=== PATIENT | female | born 1950 | race Caucasian/White ===

== ENCOUNTER 2020-05-28 14:47 | Outpatient (CLI) | payer BC, MEDICARE, SELFPAY ==
--- NOTE | ~2020-05-28 | DEXA_ITS ---
Bone Density Report Name: Livier Arvizu Age: 69 Sex: Female Ethnicity: White Date of : 1950 Indication: osteopenia; height loss; inflammatory bowel disease; cancer; Referring Provider: Radha Spears Study: Bone densitometry was performed. Exam Date: May 28, 2020 Accession number: [id number] Bone Density: Region BMD T-score Z-score Classification AP Spine (L1-L4) 0.938 -1.0 1.2 Normal Femoral Neck (Left) 0.562 -2.6 -0.7 Osteoporosis Total Hip (Left) 0.688 -2.1 -0.5 Osteopenia Total Hip Bilateral Avg 0.668 -2.3 -0.7 Osteopenia Femoral Neck (Right) 0.528 -2.9 -1.0 Osteoporosis Total Hip (Right) 0.647 -2.4 -0.8 Osteopenia World Health Organization criteria for BMD impression classify patients as: Normal (T-score at or above -1.0), Osteopenia (T-score between -1.0 and -2.5), or Osteoporosis (T-score at or below -2.5). 10-year Fracture Risk: FRAX not reported because: Some T-score for Spine Total or Hip Total or Femoral Neck at or below -2.5 Previous Exams: Region Exam Age BMD T-score BMD Change BMD Change Date g/cm2 vs Baseline vs Previous AP Spine(L1-L4) 05/28/2020 69 0.938 -1.0 0.062(7.1%)# 0.022(2.4%) 06/16/2017 66 0.916 -1.2 0.040(4.6%)# 0.006(0.7%) 11/16/2014 64 0.910 -1.2 0.034(3.9%)# 0.034(3.9%)# 10/28/2012 62 0.876 -1.6 Total Hip(Left) 05/28/2020 69 0.688 -2.1 -0.014(-2.0%)# -0.069(-9.1%)* 06/16/2017 66 0.756 -1.5 0.055(7.8%)# 0.066(9.6%)* 11/16/2014 64 0.690 -2.1 -0.011(-1.6%)# -0.011(-1.6%)# 10/28/2012 62 0.701 -2.0 Total Hip(Right) 05/28/2020 69 0.647 -2.4 -0.037(-5.5%)# -0.068(-9.6%)* 06/16/2017 66 0.716 -1.9 0.031(4.5%)# 0.009(1.3%) 11/16/2014 64 0.706 -1.9 0.022(3.2%)# 0.022(3.2%)# 10/28/2012 62 0.685 -2.1 *Denotes significance at 95% confidence level, LSC for AP Spine = 0.022 g/cm2, LSC for Total Hip = 0.027 g/cm2 Clinical Information Provided by Patient: Has used the following medications: Actonel (i.e. risedronate), Vitamin D, Calcium Has the following medical conditions: Cancer, Inflammatory bowel diseases, crohns Patient maximum height was 64 Menopause Age: 48 Does not regularly consume dairy products Drinks caffeinated beverages Onset of menses at age 11 Number of children 0 Impression: The patient has osteoporosis, based on the Right Femoral Neck T-score. The BMD for the Total Hip(Left) decreased, changing by -9.1% sinc
== END 2020-05-28 14:48 | disposition home or self-care (01) ==
LOC: ANHIMG 14:51
PROVIDERS: PCP Family Medicine; Visit Provider Physician Assistant
DX: Z78.0 Asymptomatic menopausal state (principal); M81.0 Age-related osteoporosis without current pathological fracture; M85.852 Other specified disorders of bone density and structure, left thigh; M85.851 Other specified disorders of bone density and structure, right thigh
CPT/HCPCS: 77080

== ENCOUNTER 2021-02-02 15:22 | Emergency (ER) | payer OTHER, SELFPAY ==
--- NOTE | 2021-02-02 15:31 | ED.SKABFB ---
HPI - Skin/Abscess/Foreign Bdy General Chief complaint: Extremity Injury, Upper Stated complaint: fungus on left pinky nail Source: patient Mode of arrival: ambulatory Limitations: no limitations History of Present Illness HPI narrative: Patient is a 70-year-old female who presents complaining of discoloration to left fifth digit fingernail. She denies injury. She denies having professional manicures or wearing artificial nails. She reports change in color nail over the past week. She denies all other complaints at this time. MD complaint: other Related Data Home Medications Medication Instructions Recorded Confirmed calcium carbonate 600 mg calcium 600 mg PO DAILY 10/11/19 10/15/20 (1,500 mg) tablet cholecalciferol (vitamin D3) 25 25 mcg PO DAILY 10/11/19 10/15/20 mcg (1,000 unit) capsule multivitamin 1 tablet PO DAILY 10/11/19 10/15/20 Allergies Allergy/AdvReac Type Severity Reaction Status Date / Time No Known Allergies Allergy Verified 02/02/21 15:38 Review of Systems Review of Systems: CONSTITUTIONAL: Denies fever, chills, or sweats. EYES: Denies visual changes, redness, or discharge. ENT: Denies rhinorrhea, congestion, sore throat, or otalgia. CARDIOVASCULAR: Denies chest pain, palpitations, or edema. RESPIRATORY: Denies cough or dyspnea. GASTROINTESTINAL: Denies abdominal pain, nausea, vomiting, or diarrhea. GENITOURINARY: Denies dysuria or hematuria. SKIN: Reports discoloration of left fifth fingernail MUSCULOSKELETAL: Denies back pain, joint pain, or myalgia. NEUROLOGIC: Denies headache, numbness, dizziness, or weakness. PSYCHIATRIC: Denies anxiety or depression. [facility] Past Medical History Medical History History of breast cancer History of tobacco abuse Hypertension Mixed hyperlipidemia Osteoporosis Surgical History Surgical History Hx of basal cell carcinoma excision nose and lip S/P breast lumpectomy Family History Family History Mother Family history of premature coronary heart disease, Onset Age: 60 Hypertension Family history of elevated blood lipids Patient's mother is Sibling Family history of malignant neoplasm of breast in first degree relative, Onset Age: 40 Patient's sister is Father Family history of throat cancer, Onset Age: 70 Patient's father is Social History Social History Social History: Smoking packs per day: 0.5 Smoking cigarettes per day: 10.0 Years smoked: 40 Smoking pack-years: 20.00 Smoking status: Former smoker Tobacco type: cigarettes Second hand tobacco smoke exposure: No Smoking end date: 03/23/04 Alcohol intake: current Drinks per week: 2 Substance use: never Substance use type: does not use Gender identity (if verbalized by the patient): Female Sexual Orientation (if Verbalized by the Patient): Straight or Heterosexual Comments At the time of signature, I have reviewed and agree with nursing past medical, surgical, social, and family history unless otherwise noted. Please see nursing chart for further information. There is no relevant family history pertinent to the presenting complaint. Exam Narrative: GENERAL: Well-appearing, well-nourished, and in no acute distress. HEAD: Normocephalic, atraumatic. EYES: EOMI. No redness or drainage. Conjunctiva are normal. ENT: Mucous membranes pink and moist. Nares clear. No rhinorrhea. TMs normal bilaterally. Throat normal. Uvula midline. NECK: AROM. Supple. No lymphadenopathy. CHEST: No respiratory distress. Clear to auscultation. HEART: Regular rate and rhythm. No murmur appreciated. Normal peripheral pulses. GI: Soft, nontender without rebound, or guarding. No dis
[2021-02-02 15:37] VITALS: BP 123/60; PULSE 90; RESP 20; TEMP 36.8; O2SAT 99
[2021-02-02 15:41] VITALS: BP 123/60; PULSE 90; RESP 20; TEMP 36.8; O2SAT 99
== END 2021-02-02 15:55 | disposition home or self-care (01) ==
PROVIDERS: Emergency Provider Nurse Practitioner; PCP Family Medicine
DX: B35.1 Tinea unguium (principal); Z87.891 Personal history of nicotine dependence; I10 Essential (primary) hypertension; E78.2 Mixed hyperlipidemia; M81.0 Age-related osteoporosis without current pathological fracture; Z85.3 Personal history of malignant neoplasm of breast
CPT/HCPCS: 99212; G0463

== ENCOUNTER → 2021-09-09 14:48 | Outpatient (CLI) | payer OTHER, SELFPAY ==
--- NOTE | ~2021-09-09 | MR_ITS ---
EXAMINATION: MR brain/brain stem wo con DATE: 09/09/2021 15:35 INDICATION: Unspecified disorder of binocular movement. TECHNIQUE: Magnetic resonance imaging (MRI) of the brain and brainstem was performed without intraven ous contrast. COMPARISON: None. FINDINGS: There are scattered areas of nonspecific increased T2-weighted signal intensity in the cere bral white matter and right basal ganglia. There is no intracranial hemorrhage, acute infarction, or abnormal intracranial mass lesion. The ventricles are normal in size. There are likely changes of ocu lar lens replacement surgeries. The mastoid air cells are normal. The paranasal sinuses are clear. IMPRESSION: 1. Mild nonspecific cerebral white matter disease and disease of the right basal ganglia, which likel y represents chronic small vessel ischemic disease. Reviewed, dictated and finalized at location A. IMPRESSION: 1. Mild nonspecific cerebral white matter disease and disease of the right basa l ganglia, which likely represents chronic small vessel ischemic disease.
== END ==
PROVIDERS: PCP Family Medicine; Visit Provider Family Medicine
DX: H51.9 Unspecified disorder of binocular movement (principal); R93.0 Abnormal findings on diagnostic imaging of skull and head, not elsewhere classified
CPT/HCPCS: 70551

== ENCOUNTER 2021-10-29 00:06 | Day surgery (SDC) | payer OTHER, SELFPAY ==
[2021-10-14 14:13] VITALS: BMI 21.2
[2021-10-29 07:40] VITALS: BP 122/70; PULSE 78; RESP 16; TEMP 36.2; O2SAT 99
[2021-10-29] MEDS: LACTATED RINGERS 1,000 ML 150 ML IV CONT (07:48)
--- NOTE | 2021-10-29 08:18 | WPDANESEPPF ---
Anes - Initial Pre Proc Eval Procedure: Operation Date: 10/29/21 09:00 Proposed Procedures p Screening Colonoscopy - Norman Black MD Date/Time: 10/29/21 08:18 Surgeon: Norman Black MD Pre Op Diagnosis: positive cologuard Patient Data Age: 71 Gender: F Height: 1.6 m Weight: 54.2 kg Last Vital Signs Temp 97.1 F L 10/29/21 07:40 Pulse 78 10/29/21 07:40 Resp 16 10/29/21 07:40 BP 122/70 10/29/21 07:40 Pulse Ox 99 10/29/21 07:40 O2 Del Method Room Air 10/29/21 07:40 Allergies Allergy/AdvReac Type Severity Reaction Status Date / Time No Known Allergies Allergy Verified 10/29/21 07:38 Home Medications Medication Instructions Recorded Confirmed Type calcium carbonate 600 mg calcium 600 mg PO DAILY 10/11/19 10/29/21 History (1,500 mg) tablet (Calcium) cholecalciferol (vitamin D3) 25 25 mcg PO DAILY 10/11/19 10/29/21 History mcg (1,000 unit) capsule multivitamin 1 tablet PO DAILY 10/11/19 10/29/21 History atorvastatin 10 mg tablet (Lipitor) 10 mg PO DAILY #90 tabs 10/05/20 10/29/21 Rx lisinopril 10 mg tablet 10 mg PO DAILY #90 tabs 10/05/20 10/29/21 Rx sodium sul 1.479 gram-potas ch See Rx Instructions PO PER PKG DIR 09/17/21 10/29/21 Rx 0.188 gram-magnes sul 0.225 gram #24 tabs tablet (Sutab) alendronate 70 mg tablet (Fosamax) 70 mg PO WEEKLY #14 tabs 10/12/21 10/29/21 Rx Patient hx anesthesia problems: none Family hx anesthesia problems: none Results Review: All pre-operative results and documents have been reviewed as part of the pre-operative evaluation. [facility] Past Medical History Medical History History of breast cancer History of tobacco abuse Hypertension Mixed hyperlipidemia Osteoporosis Surgical History Surgical History Hx of basal cell carcinoma excision nose and lip S/P breast lumpectomy Family History Family History Mother Family history of premature coronary heart disease, Onset Age: 60 Hypertension Family history of elevated blood lipids Patient's mother is Sibling Family history of malignant neoplasm of breast in first degree relative, Onset Age: 40 Patient's sister is Father Family history of throat cancer, Onset Age: 70 Patient's father is Social History Social History (Updated 08/23/21 @ 13:27 by Vijaya Moe) Social History: Smoking packs per day: 0.5 Smoking cigarettes per day: 10.0 Years smoked: 40 Smoking pack-years: 20.00 Smoking status: Former smoker Tobacco type: cigarettes Second hand tobacco smoke exposure: No Smoking end date: 03/23/04 Alcohol intake: current Drinks per week: 4 Substance use: current Substance use type: marijuana Other substance usage details: THC 2X daily Living arrangements: with family Gender identity (if verbalized by the patient): Female Sexual Orientation (if Verbalized by the Patient): Straight or Heterosexual Spiritual care concerns: No Anes - Eval Final PreProcedure Day of Procedure 10/29/21 08:18 Patient weight: normal Heart: regular rate and rhythm Lungs: clear to auscultation Airway: Mallampati scale class II Neurological: alert and oriented Last oral intake: >/= 8 hours ASA classification: III Emergent: no Anesthetic plan: proceed Anesthesia type and monitoring: general GIVS and standard monitoring Results Review: All pre-operative results and documents have been reviewed as part of the pre-operative evaluation. Informed Consent: The patient's anesthetic plan and its attendant risks and benefits were discussed with the patient/family/POA. Questions were solicited and answers provided to the satisfaction of the patient/family/POA.
--- NOTE | 2021-10-29 08:26 | PM.HPGS ---
History of Present Illness History of Present Illness Consent: Risks, benefits, and alternatives have been discussed and questions answered. Patient agrees to proceed with procedure. Chief complaint: positive cologuard Narrative: Livier Arvizu is a 71 year old female here for + cologuard, last colonoscopy about 20 years ago. She was told that had crohn's about 45 years ago but never had GI surgeries and not using any med for IBD. Review of Systems Constitutional: Constitutional: Denies headache(s) and Denies weakness Eyes: Eyes: Denies blurry vision ENT: Reports Normal hearing present, Denies headache(s) and Denies neck pain Cardiovascular: Cardiovascular: Denies chest pain and Denies dyspnea Respiratory: Respiratory: Denies dyspnea Gastrointestinal: Gastrointestinal: Reports no additional gastrointestinal complaints Genitourinary: Genitourinary: Denies dysuria Musculoskeletal: Musculoskeletal: Denies neck pain Integumentary/Breasts: Skin/Breast: Denies dry skin Neurologic: Reports Normal hearing present, Denies headache(s) and Denies weakness Psychiatric: Psychiatric: Denies anxiety Endocrine: Endocrine: Denies change in body appearance Hematologic/Lymphatic: Hematologic/Lymphatic: Denies easy bleeding Allergic/Immunologic: Allergic/Immunologic: Denies urticaria PMFSH Past Medical History Medical History History of breast cancer History of tobacco abuse Hypertension Mixed hyperlipidemia Osteoporosis Surgical History Surgical History Hx of basal cell carcinoma excision nose and lip S/P breast lumpectomy Family History Family History Mother Family history of premature coronary heart disease, Onset Age: 60 Hypertension Family history of elevated blood lipids Patient's mother is Sibling Family history of malignant neoplasm of breast in first degree relative, Onset Age: 40 Patient's sister is Father Family history of throat cancer, Onset Age: 70 Patient's father is Social History Social History (Updated 08/23/21 @ 13:27 by Vijaya Moe) Social History: Smoking packs per day: 0.5 Smoking cigarettes per day: 10.0 Years smoked: 40 Smoking pack-years: 20.00 Smoking status: Former smoker Tobacco type: cigarettes Second hand tobacco smoke exposure: No Smoking end date: 03/23/04 Alcohol intake: current Drinks per week: 4 Substance use: current Substance use type: marijuana Other substance usage details: THC 2X daily Living arrangements: with family Gender identity (if verbalized by the patient): Female Sexual Orientation (if Verbalized by the Patient): Straight or Heterosexual Spiritual care concerns: No Meds Home Medications and Allergies Home Medications Medication Instructions Recorded Confirmed Type calcium carbonate 600 mg calcium 600 mg PO DAILY 10/11/19 10/29/21 History (1,500 mg) tablet (Calcium) cholecalciferol (vitamin D3) 25 25 mcg PO DAILY 10/11/19 10/29/21 History mcg (1,000 unit) capsule multivitamin 1 tablet PO DAILY 10/11/19 10/29/21 History atorvastatin 10 mg tablet (Lipitor) 10 mg PO DAILY #90 tabs 10/05/20 10/29/21 Rx lisinopril 10 mg tablet 10 mg PO DAILY #90 tabs 10/05/20 10/29/21 Rx sodium sul 1.479 gram-potas ch See Rx Instructions PO PER PKG DIR 09/17/21 10/29/21 Rx 0.188 gram-magnes sul 0.225 gram #24 tabs tablet (Sutab) alendronate 70 mg tablet (Fosamax) 70 mg PO WEEKLY #14 tabs 10/12/21 10/29/21 Rx Allergies Allergy/AdvReac Type Severity Reaction Status Date / Time No Known Allergies Allergy Verified 10/29/21 07:38 Vital Signs Vital Signs - 24 hr 10/29/21 07:40 Temperature 97.1 F L Pulse Rate 78 Respiratory Rate 16 Blood Pressure 122/70 Pulse Oximetry 99
[2021-10-29 09:26] VITALS: BP 113/71; PULSE 85; RESP 24; O2SAT 100
[2021-10-29 09:36] VITALS: BP 123/75; PULSE 76; RESP 19; O2SAT 98
[2021-10-29 09:46] VITALS: BP 114/74; PULSE 74; RESP 20; O2SAT 100
== END 2021-10-29 10:00 | disposition home or self-care (01) ==
PROVIDERS: PCP Family Medicine; Visit Provider Internal Medicine Gastroenterology
PROC: 0DJD8ZZ Inspection of Lower Intestinal Tract, Via Natural or Artificial Opening Endoscopic (ICD-10-PCS; CPT 45378; principal; 2021-10-29 09:00)
DX: R19.5 Other fecal abnormalities (principal); D12.2 Benign neoplasm of ascending colon; D12.3 Benign neoplasm of transverse colon; D12.4 Benign neoplasm of descending colon; D12.5 Benign neoplasm of sigmoid colon; K63.89 Other specified diseases of intestine; K57.30 Diverticulosis of large intestine without perforation or abscess without bleeding; K64.8 Other hemorrhoids; I10 Essential (primary) hypertension; E78.2 Mixed hyperlipidemia; M81.0 Age-related osteoporosis without current pathological fracture; Z87.891 Personal history of nicotine dependence; F12.90 Cannabis use, unspecified, uncomplicated
CPT/HCPCS: 45380; 45381; 45385; 45390; 88305; J2704; J7120

== ENCOUNTER 2022-08-07 17:51 | Emergency (ER) | payer OTHER, SELFPAY ==
[2022-08-07 17:57] VITALS: BP 127/62; PULSE 90; RESP 18; TEMP 36.4; O2SAT 97
--- NOTE | 2022-08-07 18:02 | ED.EAR ---
HPI - Ear Problem General Chief complaint: Ear Stated complaint: Ear Pain/Facial Swelling Time Seen by Provider: 08/07/22 18:02 Source: patient and RN notes reviewed History of Present Illness HPI Narrative: Patient is a 72-year-old female presents to urgent care with complaints of right jaw swelling and right ear pain. Patient states that she is feeling lot of pressure in the ear. States that it came on suddenly while she was eating a cheeseburger and fries tonight. Denies any recent fever or illness. Patient has not taken anything [id number] for her pain. No other acute complaints. No acute distress noted. Patient aware of the plan of care. Some parts of this dictation were generated by voice recognition software and may contain typographical and/or grammatical inaccuracies. Related Data Home Medications Medication Instructions Recorded Confirmed calcium carbonate 600 mg calcium 600 mg PO DAILY 10/11/19 08/07/22 (1,500 mg) tablet (Calcium) cholecalciferol (vitamin D3) 25 25 mcg PO DAILY 10/11/19 08/07/22 mcg (1,000 unit) capsule multivitamin 1 tablet PO DAILY 10/11/19 08/07/22 Allergies Allergy/AdvReac Type Severity Reaction Status Date / Time No Known Allergies Allergy Verified 08/07/22 18:04 Review of Systems Review of Systems: CONSTITUTIONAL: Denies fever, chills, or sweats. EYES: Denies visual changes, redness, or discharge. ENT: Denies rhinorrhea, congestion, sore throat. Reports of right facial swelling and right ear pain CARDIOVASCULAR: Denies chest pain, palpitations, or edema. RESPIRATORY: Denies cough or dyspnea. GASTROINTESTINAL: Denies abdominal pain, nausea, vomiting, or diarrhea. GENITOURINARY: Denies dysuria or hematuria. SKIN: Denies rash or itching. MUSCULOSKELETAL: Denies back pain, joint pain, or myalgia. NEUROLOGIC: Denies headache, numbness, or weakness. All other systems reviewed are negative, except as documented in HPI. [facility] Past Medical History Medical History History of breast cancer History of tobacco abuse Hypertension Mixed hyperlipidemia Osteoporosis Surgical History Surgical History Hx of basal cell carcinoma excision nose and lip S/P breast lumpectomy Family History Family History Mother Family history of premature coronary heart disease, Onset Age: 60 Hypertension Family history of elevated blood lipids Patient's mother is Sibling Family history of malignant neoplasm of breast in first degree relative, Onset Age: 40 Patient's sister is Father Family history of throat cancer, Onset Age: 70 Patient's father is Social History Social History (Updated 08/23/21 @ 13:27 by Vijaya Moe) Social History: Smoking packs per day: 0.5 Smoking cigarettes per day: 10.0 Years smoked: 40 Smoking pack-years: 20.00 Smoking status: Former smoker Tobacco type: cigarettes Second hand tobacco smoke exposure: No Smoking end date: 03/23/04 Alcohol intake: current Drinks per week: 4 Substance use: current Substance use type: marijuana Other substance usage details: THC 2X daily Living arrangements: with family Occupation/Education: retired Gender identity (if verbalized by the patient): Female Sexual Orientation (if Verbalized by the Patient): Straight or Heterosexual Spiritual care concerns: No Comments At the time of my signature, I reviewed and agree with the nursing past medical, surgical, social, and family history. There is no relevant family history pertinent to the patient complaint. Exam Narrative: GENERAL: This is a well-nourished, well-developed patient, in no apparent distress. HEAD: normocephalic, atraumatic. EYES: PERRL. Sclera clear/white. Vision is grossly intact. EA
== END 2022-08-07 18:13 | disposition home or self-care (01) ==
PROVIDERS: Emergency Provider Nurse Practitioner Family; PCP Family Medicine
DX: K11.20 Sialoadenitis, unspecified (principal); F17.210 Nicotine dependence, cigarettes, uncomplicated; F12.90 Cannabis use, unspecified, uncomplicated; I10 Essential (primary) hypertension; E78.2 Mixed hyperlipidemia; M81.0 Age-related osteoporosis without current pathological fracture; Z85.3 Personal history of malignant neoplasm of breast; Z85.828 Personal history of other malignant neoplasm of skin
CPT/HCPCS: 99211; G0463

== ENCOUNTER 2022-12-02 14:38 | Emergency (ER) | payer OTHER, SELFPAY ==
--- NOTE | 2022-12-02 14:47 | ED.DENTAL ---
HPI - Dental/Oral General Chief complaint: Dental/Oral Stated complaint: Mouth Sore Time Seen by Provider: 12/02/22 14:55 Mode of arrival: ambulatory Limitations: no limitations History of Present Illness HPI Narrative: [age] year old female presents concern for sore on her tongue. She reports it has been present for about week. She reports symptoms started after she aggressively cleaned her tongue before she went to the dentist. She denies sore throat, nasal congestion, rhinorrhea trouble swallowing. She denies other sores in her mouth. Related Data Home Medications Medication Instructions Recorded Confirmed calcium carbonate 600 mg calcium 600 mg PO DAILY 10/11/19 10/27/22 (1,500 mg) tablet (Calcium) cholecalciferol (vitamin D3) 25 25 mcg PO DAILY 10/11/19 10/27/22 mcg (1,000 unit) capsule multivitamin 1 tablet PO DAILY 10/11/19 10/27/22 alendronate 70 mg tablet (Fosamax) 70 mg PO WEEKLY 10/27/22 10/27/22 Allergies Allergy/AdvReac Type Severity Reaction Status Date / Time No Known Allergies Allergy Verified 10/27/22 13:26 Review of Systems Review of Systems: CONSTITUTIONAL: Denies malaise, chills, sweats, or fever. EYES: Denies visual changes ENT: Denies rhinorrhea, congestion, sinus pain, otalgia or sore throat. Reports sore on her tongue CARDIOVASCULAR: Denies chest pain, palpitations RESPIRATORY: Denies cough or dyspnea. SKIN: Denies rash or itching. MUSCULOSKELETAL: Denies myalgia. NEUROLOGIC: Denies numbness, weakness, or headache. All systems reviewed & are unremarkable except as noted in HPI and below PMFSH Past Medical History Medical History History of breast cancer History of tobacco abuse Hypertension Mixed hyperlipidemia Osteoporosis Surgical History Surgical History Hx of basal cell carcinoma excision nose and lip S/P breast lumpectomy Family History Family History Mother Family history of premature coronary heart disease, Onset Age: 60 Hypertension Family history of elevated blood lipids Patient's mother is Sibling Family history of malignant neoplasm of breast in first degree relative, Onset Age: 40 Patient's sister is Father Family history of throat cancer, Onset Age: 70 Patient's father is Social History Social History (Updated 08/23/21 @ 13:27 by Vijaya Moe) Social History: Smoking packs per day: 0.5 Smoking cigarettes per day: 10.0 Years smoked: 40 Smoking pack-years: 20.00 Smoking status: Former smoker Tobacco type: cigarettes Second hand tobacco smoke exposure: No Smoking end date: 03/23/04 Alcohol intake: current Drinks per week: 4 Substance use: current Substance use type: marijuana Other substance usage details: THC 2X daily Living arrangements: with family Occupation/Education: retired Gender identity (if verbalized by the patient): Female Sexual Orientation (if Verbalized by the Patient): Straight or Heterosexual Spiritual care concerns: No Comments At time of signature, agree with nursing past medical, surgical, social and family history. There is no relevant family history pertinent to the presenting complaint Exam Narrative: GENERAL: Well-appearing, well-nourished, and in no acute distress. HEAD: Normocephalic, atraumatic. EYES: PERRLA, sclera clear ENT: Nares clear, turbinates pink, no rhinorrhea or epistaxis. Mucous membranes moist. Oropharynx without erythema. Approximately 0.75 cm linear superficial laceration noted to the mid tongue. Tonsils not enlarged and without exudate. No missing teeth, broken teeth, caries NECK: Supple. No lymphadenopathy. CHEST: No respiratory distress. Speaks in full sentences. HEART: Regular rate and rhythm. SKIN: Warm,
[2022-12-02 14:49] VITALS: BP 113/76; PULSE 84; RESP 16; TEMP 36.6; O2SAT 96
== END 2022-12-02 15:09 | disposition home or self-care (01) ==
PROVIDERS: Emergency Provider Nurse Practitioner; PCP Family Medicine
DX: S01.512A Laceration without foreign body of oral cavity, initial encounter (principal); I10 Essential (primary) hypertension; E78.2 Mixed hyperlipidemia; Z85.3 Personal history of malignant neoplasm of breast; Z87.891 Personal history of nicotine dependence; W45.8XXA Other foreign body or object entering through skin, initial encounter
CPT/HCPCS: 99213; G0463

== ENCOUNTER 2023-07-20 12:41 | Emergency (ER) | payer OTHER, SELFPAY ==
[2023-07-20 12:52] VITALS: BP 132/78; PULSE 86; RESP 16; TEMP 36.2; O2SAT 98
--- NOTE | 2023-07-20 13:36 | ED.EAR ---
HPI - Ear Problem General Chief complaint: Ear Stated complaint: Ear Pain Time Seen by Provider: 07/20/23 13:20 Source: patient, RN notes reviewed and old records reviewed Mode of arrival: ambulatory Limitations: no limitations History of Present Illness HPI Narrative: 72 [facility] complaints of having ear pain when lying in bed for the past few days. Patient reports that she has decreased hearing and thinks her ear need flushed out.Patient denies any cough or any sinus congestion or any other symptoms of respiratory infection. She reports no fevers, chills or sweats or malaise. MD Complaint: ear pain, decreased hearing and other (feel clogged) Location: bilateral Duration: intermittent Severity: mild Discharge from ear: Reports no Related Data Home Medications Medication Instructions Recorded Confirmed calcium carbonate (Calcium 600) 600 mg PO DAILY 10/11/19 06/24/23 cholecalciferol (vitamin D3) 25 25 mcg PO DAILY 10/11/19 06/24/23 mcg (1,000 unit) capsule multivitamin 1 tablet PO DAILY 10/11/19 06/24/23 Allergies Allergy/AdvReac Type Severity Reaction Status Date / Time No Known Allergies Allergy Verified 06/24/23 14:27 Review of Systems Review of Systems: CONSTITUTIONAL: Denies malaise, chills, sweats, or fever. EYES: Denies visual changes, redness, or discharge. ENT: Reports rhinorrhea, congestion, sinus pain, positive for otalgia and no sore throat. CARDIOVASCULAR: Denies chest pain, palpitations, or edema. RESPIRATORY: Reports no cough.? Denies dyspnea. GASTROINTESTINAL: Denies abdominal pain, nausea, vomiting, diarrhea SKIN: Denies rash or itching. MUSCULOSKELETAL: Denies myalgia. NEUROLOGIC: Denies headache. All systems reviewed & are unremarkable except as noted in HPI and below PMFSH Past Medical History Medical History History of breast cancer History of tobacco abuse Hypertension Mixed hyperlipidemia Osteoporosis Surgical History Surgical History Hx of basal cell carcinoma excision nose and lip S/P breast lumpectomy Family History Family History Mother Family history of premature coronary heart disease, Onset Age: 60 Hypertension Family history of elevated blood lipids Patient's mother is Sibling Family history of malignant neoplasm of breast in first degree relative, Onset Age: 40 Patient's sister is Father Family history of throat cancer, Onset Age: 70 Patient's father is Social History Social History Social History: Smoking packs per day: 0.5 Smoking cigarettes per day: 10.0 Years smoked: 40 Smoking pack-years: 20.00 Smoking status: Former smoker Tobacco type: cigarettes Second hand tobacco smoke exposure: No Smoking end date: 03/23/04 Alcohol intake: current Drinks per week: 4 Substance use: current Substance use type: marijuana Other substance usage details: THC 2X daily Living arrangements: with family Occupation/Education: retired Gender identity (if verbalized by the patient): Female Sexual Orientation (if Verbalized by the Patient): Straight or Heterosexual Spiritual care concerns: No Comments At time of signature, agree with nursing past medical, surgical, social and family history. There is no relevant family history pertinent to the presenting complaint Exam Narrative: GENERAL: Well-appearing, well-nourished, and in no acute distress. HEAD: Normocephalic EYES: PERRLA, conjunctivae clear ENT: Nares clear, turbinates edematous and erythematous, clear discharge. Mucous membranes moist Impacted cerumen bilateral ears, once cleansed both TM pearly meadows with dull light reflex b
== END 2023-07-20 14:12 | disposition home or self-care (01) ==
PROVIDERS: Emergency Provider Registered Nurse; PCP Family Medicine
DX: H61.23 Impacted cerumen, bilateral (principal); Z87.891 Personal history of nicotine dependence; F12.90 Cannabis use, unspecified, uncomplicated; I10 Essential (primary) hypertension; E78.2 Mixed hyperlipidemia; M81.0 Age-related osteoporosis without current pathological fracture; Z85.3 Personal history of malignant neoplasm of breast; Z85.828 Personal history of other malignant neoplasm of skin
CPT/HCPCS: 69209; 99212; G0463

== ENCOUNTER 2023-07-22 13:12 | Emergency (ER) | payer OTHER, SELFPAY ==
--- NOTE | 2023-07-22 13:16 | ED.GENADULT ---
HPI - General Adult General Chief complaint: Eye Problems Stated complaint: Eye Problem Source: patient, RN notes reviewed and old records reviewed Mode of arrival: ambulatory Limitations: no limitations History of Present Illness HPI narrative: 73-year-old female presents to [facility] with complaints red swollen area to right lower eyelid this started today. Patient denies any matting patient denies drainage. Related Data Home Medications Medication Instructions Recorded Confirmed calcium carbonate (Calcium 600) 600 mg PO DAILY 10/11/19 07/22/23 cholecalciferol (vitamin D3) 25 25 mcg PO DAILY 10/11/19 07/22/23 mcg (1,000 unit) capsule multivitamin 1 tablet PO DAILY 10/11/19 07/22/23 alendronate 70 mg tablet 70 mg PO WEEKLY 07/22/23 07/22/23 atorvastatin 10 mg tablet 10 mg PO DAILY 07/22/23 07/22/23 bupropion HCl 150 mg 24 hr tablet, 150 mg PO DAILY 07/22/23 07/22/23 extended release gabapentin 100 mg capsule 100 mg PO TID 07/22/23 07/22/23 lisinopril 10 mg tablet 10 mg PO DAILY 07/22/23 07/22/23 Allergies Allergy/AdvReac Type Severity Reaction Status Date / Time No Known Allergies Allergy Verified 07/22/23 13:17 Review of Systems Constitutional: Constitutional: Reports no additional constitutional complaints, Denies body ache(s), Denies chills, Denies fatigue, Denies fever(s) and Denies headache(s) Eyes: Eyes: Reports no additional eye complaints, Denies blurry vision, Denies exophthalmos, Denies change in vision, Denies decreased night vision, Denies diplopia, Denies eye discharge, Reports irritation, Denies loss of vision, Denies other visual disturbances and Reports other (bump on lower lid) ENT: Reports system reviewed and no additional complaints, except as documented, Denies vertigo, Denies dizziness, Denies ear discharge, Denies otalgia, Denies facial pain, Denies headache(s), Denies nasal congestion, Denies nasal discharge, Denies sinus pain, Denies sinus pressure and Denies sore throat Cardiovascular: Cardiovascular: Reports no additional cardiovascular complaints, Denies chest pain, Denies chest pain at rest, Denies rapid heart rate and Denies dyspnea Respiratory: Respiratory: Reports no additional respiratory complaints, Denies chest congestion, Denies cough, Denies pain on inspiration, Denies pain with cough and Denies dyspnea Gastrointestinal: Gastrointestinal: Denies abdominal pain, Denies diarrhea, Denies nausea and Denies vomiting Integumentary/Breasts: Skin/Breast: Denies rash Neurologic: Reports system reviewed and no additional complaints, except as documented, Denies vertigo, Denies dizziness and Denies headache(s) Endocrine: Endocrine: Denies fatigue [facility] Past Medical History Medical History History of breast cancer History of tobacco abuse Hypertension Mixed hyperlipidemia Osteoporosis Surgical History Surgical History Hx of basal cell carcinoma excision nose and lip S/P breast lumpectomy Family History Family History Mother Family history of premature coronary heart disease, Onset Age: 60 Hypertension Family history of elevated blood lipids Patient's mother is Sibling Family history of malignant neoplasm of breast in first degree relative, Onset Age: 40 Patient's sister is Father Family history of throat cancer, Onset Age: 70 Patient's father is Social History Social History Social History: Smoking packs per day: 0.5 Smoking cigarettes per day: 10.0 Years smoked: 40 Smoking pack-years: 20.00 Smoking status: Former smoker Tobacco type: cigarettes Second hand tobacco smoke exposure: No Smoking end date: 03/23/04 Alcohol intake: current Drinks per week: 4 Subst
[2023-07-22 13:17] VITALS: BP 120/71; PULSE 98; RESP 16; TEMP 36.7; O2SAT 96
[2023-07-22 13:25] VITALS: BP 120/71; PULSE 98; RESP 16; TEMP 36.7; O2SAT 96
== END 2023-07-22 13:30 | disposition home or self-care (01) ==
PROVIDERS: Emergency Provider Registered Nurse; PCP Family Medicine
DX: H00.012 Hordeolum externum right lower eyelid (principal); Z87.891 Personal history of nicotine dependence; F12.90 Cannabis use, unspecified, uncomplicated; I10 Essential (primary) hypertension; E78.2 Mixed hyperlipidemia; M81.0 Age-related osteoporosis without current pathological fracture; Z85.3 Personal history of malignant neoplasm of breast; Z85.828 Personal history of other malignant neoplasm of skin
CPT/HCPCS: 99213; G0463

== ENCOUNTER 2023-08-08 13:51 | Emergency (ER) | payer OTHER, SELFPAY ==
[2023-08-08] VITALS (7 sets, daily range): BP systolic 121–137; BP diastolic 65–89; PULSE 78–97; RESP 13–18; TEMP 36.4–36.9; O2SAT 96–97
--- NOTE | ~2023-08-08 | CT_ITS ---
EXAMINATION: CT brain wo con DATE: 08/08/2023 15:09 INDICATION: fall, syncope . TECHNIQUE: Computed tomography (CT) of the head was performed without intravenous contrast. The mA wa s adjusted according to patient size. Iterative reconstruction technique was employed. The dose-lengt h product was 605.33 mGy-cm. COMPARISON: MR brain 09/09/2021. FINDINGS: No acute intracranial hemorrhage or extra-axial fluid collection. No hydrocephalus, mass, or herniation. No acute ischemic infarct. Unremarkable dural venous sinus attenuation. No acute osseous abnormality. The aerated spaces are clear. Mild atrophy and chronic white matter change. Atherosclerotic intracranial calcification. IMPRESSION: No acute intracranial process. Reviewed, dictated and finalized at location K.
--- NOTE | 2023-08-08 13:53 | ECG_ITS ---
SEE SCANNED COPY FOR CONFIRMED REPORT MTDD
--- NOTE | 2023-08-08 14:04 | ED.SYNCOPE ---
HPI - Syncope General Chief Complaint: Syncope Stated Complaint: dizzy Time Seen by Provider: 08/08/23 13:55 History of Present Illness HPI narrative: Patient states last night she was going out to water her birds when she started feeling like she was going to pass out, felt very nauseous, and got back to the house, was trying to lay herself down on the floor but next thing she knew she woke up to her holding her. Related Data Home Medications Medication Instructions Recorded Confirmed calcium carbonate (Calcium 600) 600 mg PO DAILY 10/11/19 07/22/23 cholecalciferol (vitamin D3) 25 25 mcg PO DAILY 10/11/19 07/22/23 mcg (1,000 unit) capsule multivitamin 1 tablet PO DAILY 10/11/19 07/22/23 alendronate 70 mg tablet 70 mg PO WEEKLY 07/22/23 07/22/23 atorvastatin 10 mg tablet 10 mg PO DAILY 07/22/23 07/22/23 gabapentin 100 mg capsule 100 mg PO TID 07/22/23 07/22/23 lisinopril 10 mg tablet 10 mg PO DAILY 07/22/23 07/22/23 Allergies Allergy/AdvReac Type Severity Reaction Status Date / Time No Known Allergies Allergy Verified 08/08/23 14:03 Review of Systems Review of Systems: All systems reviewed & are unremarkable except as noted in HPI and below PMFSH Past Medical History Medical History History of breast cancer History of tobacco abuse Hypertension Mixed hyperlipidemia Osteoporosis Surgical History Surgical History Hx of basal cell carcinoma excision nose and lip S/P breast lumpectomy Family History Family History Mother Family history of premature coronary heart disease, Onset Age: 60 Hypertension Family history of elevated blood lipids Patient's mother is Sibling Family history of malignant neoplasm of breast in first degree relative, Onset Age: 40 Patient's sister is Father Family history of throat cancer, Onset Age: 70 Patient's father is Social History Social History Social History: Smoking packs per day: 0.5 Smoking cigarettes per day: 10.0 Years smoked: 40 Smoking pack-years: 20.00 Smoking status: Former smoker Tobacco type: cigarettes Second hand tobacco smoke exposure: No Smoking end date: 03/23/04 Alcohol intake: current Drinks per week: 4 Substance use: current Substance use type: marijuana Other substance usage details: THC 2X daily Living arrangements: with family Occupation/Education: retired Gender identity (if verbalized by the patient): Female Sexual Orientation (if Verbalized by the Patient): Straight or Heterosexual Spiritual care concerns: No Exam Narrative: EXAMINATION OF ORGAN SYSTEMS/BODY AREAS: Constitutional: Vital signs per nursing GENERAL:[No acute distress, non-toxic appearing.] HEAD: Normal with no signs of head trauma. EYES: EOMI, conjunctiva normal ENT: Hearing grossly intact LUNGS: Nonlabored breathing. HEART: [Regular rate and rhythm] ABD: [Soft], [nontender to palpation] EXT: Normal range of motion SKIN: [No rashes or lesions.] NEURO: [Alert and oriented x 3. No gross focal sensory or strength deficits.] PSYCH: Normal affect Course Vital Signs Vital signs: Vital Signs Temperature 97.6 F 08/08/23 13:54 Pulse Rate 97 08/08/23 13:54 Respiratory Rate 13 08/08/23 13:54 Blood Pressure 137/89 08/08/23 13:54 Pulse Oximetry 96 08/08/23 13:54 Oxygen Delivery Room Air 08/08/23 13:54 Temperature 98.4 F 08/08/23 16:21 Pulse Rate 84 08/08/23 16:21 Respiratory Rate 18 08/08/23 16:21 Blood Pressure 136/83 08/08/23 16:21 Pulse Oximetry 97 08/08/23 16:21 Oxygen Delivery Room Air 08/08/23 13:54 MDM - Syncope MDM Narrative Medical decision making narrative: Patient pre
[2023-08-08 14:16] LABS: Basophils Absolute Auto 0.1 K/mm3 (0.0-0.1); Basophils Percent Auto 0.6 % (0.2-1.2); Eosinophils Absolute Auto 0.1 K/mm3 (0-0.3); Eosinophils Percent Auto 0.7 % (0-4.4); Hematocrit 35.7 % (37.0-47.0); Hemoglobin 12.1 g/dL (12.0-15.0); Immature Granulocyte Absolute 0.04 K/mm3 (0.00-0.031); Immature Granulocyte Percent A 0.5 % (0-0.5); Lymphocytes Absolute Auto 2.74 K/mm3 (0.9-3.2); Lymphocytes Percent Auto 33.7 % (18.3-44.2); Mean Corpuscular HGB Conc 33.9 g/dl (32-36); Mean Corpuscular Hemoglobin 29.4 pg (26-34); Mean Corpuscular Volume 86.9 fl (80-100); Mean Platelet Volume 9.2 fl (7.4-10.4); Monocytes Absolute Auto 0.7 K/mm3 (0.1-0.6); Monocytes Percent Auto 8.9 % (2.6-8.5); Neutrophils Absolute Auto 4.5 K/mm3 (1.3-6.7); Neutrophils Percent Auto 55.6 % (45.5-73.1); Platelet Count Result 383 k/mm3 (150-375); Red Blood Count 4.11 M/mm3 (4.2-5.4); Red Cell Distribution Width 14.5 % (11.5-14.5); White Blood Count 8.1 K/mm3 (4.5-10.0)
[2023-08-08 14:26] LABS: Alanine Aminotransferase 17 U/L (6-35); Albumin Level 4.6 g/dL (3.5-5.1); Alkaline Phosphatase 62 U/L (38-126); Anion Gap 8 mmol/L (4-12); Aspartate Amino Transferase 26 U/L (14-36); Bilirubin,Total 0.5 mg/dL (0.2-1.3); Blood Urea Nitrogen 14 mg/dL (7-17); Calcium 9.7 mg/dL (8.4-10.2); Carbon Dioxide 22 mmol/L (22-30); Chloride 101 mmol/L (98-107); Estimated CRCL calculation 36 ml/min; Estimated Glomerular Filt Rate 54; Glucose 137 mg/dL (65-110); Potassium 3.7 mmol/L (3.4-5.0); Sodium 131 mmol/L (137-145)
[2023-08-08 14:37] LABS: Troponin I < 0.012 ng/mL (0.000-0.034)
[2023-08-08] MEDS: LACTATED RINGERS 1,000 ML 999 ML IV CONT (14:58)
--- NOTE | 2023-08-08 15:03 | PC.NURSE ---
Pt to CT via stretcher on tele and O2 monitor at this time
== END 2023-08-08 16:23 | disposition home or self-care (01) ==
PROVIDERS: Preventive Medicine Aerospace Medicine; Emergency Provider Emergency Medicine; PCP Family Medicine
DX: R55 Syncope and collapse (principal); I10 Essential (primary) hypertension
CPT/HCPCS: 36415; 70450; 80053; 84484; 85025; 93005; 96360; 99284; J7120